=== PATIENT | male | born 2000 | race Caucasian/White ===

== ENCOUNTER 2018-03-21 21:32 | Emergency (ER) | payer SELFPAY ==
[~2018-03-21] VITALS: Ht 167.6 cm; Wt 70.5 kg
[2018-03-21] MEDS ORDERED: PHEN177S35 MM (21:46)
[2018-03-21] MEDS ORDERED: DIPH25CA48 PO (21:46)
[2018-03-21] MEDS ORDERED: AMOX500T2 PO (21:46)
[2018-03-21] MEDS ORDERED: IBUP-1689 PO (21:46)
[2018-03-21] MEDS: CefTRIAXone SODIUM 1 GM/VIAL IM ONE (22:32)
[2018-03-21] MEDS: LIDOCAINE/PF 1% 2 ML VIAL IM ONE (22:32)
[2018-03-21] MEDS: ACETAMINOPHEN 500 MG TABLET PO ONE (22:32)
[2018-03-21 22:50] VITALS: BP 116/88
== END 2018-03-21 22:58 | disposition home or self-care (01) ==
LOC: EMS 21:33
DX: J02.9 Acute pharyngitis, unspecified (principal)
CPT/HCPCS: 96372; 99283; J0696; J3490